=== PATIENT | female | born 1985 | race Caucasian/White ===

== ENCOUNTER 2016-09-11 12:19 | Emergency (ER) | payer OTHER ==
[~2016-09-11] VITALS: Ht 160 cm; Wt 91.3 kg
[2016-09-11 12:22] VITALS: Ht 160 cm; Wt 91.3 kg
[2016-09-11] MEDS ORDERED: PENI500T2 PO (13:43)
[2016-09-11 13:52] VITALS: BP 119/78; PULSE 78; TEMP 36.7; O2SAT 98
--- NOTE | 2016-09-12 16:28 | EMERGENCY ROOM VISIT NOTE ---
ED Visit Note First contact with patient: 13:22 CHIEF COMPLAINT: Toothache. HISTORY OF PRESENT ILLNESS: Ms. Vazquez is a 30-year-old white female who ambulates into the complaining of left mandibular dental pain. She reports approximately one month ago she injured tooth #19. She reports she chipped a tooth and was seen by a dentist who repaired her injury. Then last evening she started developing dental pain in the same tooth. Initially was mild and gradually increased in intensity. She describes her discomfort as a deep achy sensation. She rates her discomfort 7/10. Her pain is nonradiating. Her pain worsens with palpation of the tooth and chewing. She has not identified any alleviating factors related to the pain. She has not taken any medication for pain prior to arrival at the hospital. Associated with her pain she reports she feels like her face is swollen over the lateral aspect of the mandible. Patient does express significant concern because of her current about possible infections. Additionally she reports she has a history of hepatitis C and was warned about taking large doses of Tylenol cause of her liver disease, she is currently 4 months and cannot take NSAIDs and additionally she has a history of narcotic abuse and is currently on Suboxone so she cannot use narcotics. She denies fevers, chills, sweats, sore throat, difficulty swallowing, voice changes, drooling. REVIEW OF SYSTEMS: As noted above in History of Present Illness. 8 body systems were reviewed with this patient and found to be negative unless noted above otherwise. PMH: Hepatitis C, narcotic abuse, unspecified thyroid disease and status post tonsillectomy. CURRENT MEDICATION: Medications Dose Route/Sig Max Daily Dose Days Date Category Colace (Docusate Sodium) 100 Mg Cap 1 Cap PO DAILY 30 09/11/16 Reported Vitamin D3 (Cholecalciferol) 2,000 Unit Cap 1 Cap PO DAILY 30 09/11/16 Reported Methadone Hcl Unknown Strength Con 109 Mg PO DAILY 05/10/16 Reported Zoloft (Sertraline HCl) 100 Mg Tab 150 Mg PO DAILY 05/10/16 Reported Folic Acid 1 Mg Tab 4 Mg PO DAILY 05/10/16 Reported ALLERGIES TO MEDICATION: Butorphanol, sulfa.. SOCIAL HISTORY: Patient is not employed; she lives with her parents and feels safe in her home environment; she admits to tobacco use and denies alcohol use. PHYSICAL EXAM: Vital Signs: Date Time Temp Pulse Resp B/P Pulse Ox O2 Delivery O2 Flow Rate FiO2 09/11/16 13:52 36.7 78 18 119/78 98 09/11/16 12:22 36.7 78 18 119/78 98 Room Air General: 30 year-old white female in mild distress due to pain, nontoxic appearing, afebrile and hemodynamically stable. Neurological: Awake, alert and oriented to person, place and time. Answering questions appropriately and following commands. Normal gait. Good hand eye coordination. No focal motor or sensory deficits. Skin: Warm, dry and pink. HEENT: Atraumatic and normocephalic. Mild facial swelling is located over the inferior border along the angle of the mandible on the left. This area is not erythematous or warm to the touch but is mildly tender. No malocclusion. No intraoral trauma. Airway patent. There is no obvious signs of dental decay. No abscesses, erythema or edema identified. No cervical or submandibular lymphadenopathy. ED COURSE: Patient is assessed as noted above. Patient is educated about her findings and instructed on her treatment plan; she verbalizes understanding and agreement with this plan. CLINIC IMPRESSION: Dental pain. Possible early abscess. DISPOSITION: Patient discharged home in stable condition; prior to departure she was reassessed and subjectively reported she was feeling the same. PLAN: Patient was prescribed 500 mg of Pen-Vee K 4 times a day for 10 days. Patient was encouraged to use 650 mg of acetaminophen every 8 hours for pain as well as using a liquid/mechanical soft diet and room temperature and to cover the area with dental wax. Patient was encouraged to follow-up with dentistry for definitive care and treatment. Patient was encouraged to follow-up with DATA WAREHOUSING MANAGER for additional information on pain control. Patient was encouraged return the ED for worsening/uncontrolled pain, fevers, worsening facial swelling or any new/concerning symptoms.
[2016-11-03] MEDS ORDERED: DOCU-94 PO (12:27)
[2016-11-03] MEDS ORDERED: CHOL2000 PO (12:27)
[2016-11-26] MEDS ORDERED: OXYC-57 PO (10:24)
[2016-11-26] MEDS ORDERED: MTR600X PO (10:24)
== END 2016-09-11 13:52 | disposition home or self-care (01) ==
LOC: C.EDB 12:21 → C.EDD 13:52
DX: K08.89 Other specified disorders of teeth and supporting structures (principal); B19.20 Unspecified viral hepatitis C without hepatic coma; E07.9 Disorder of thyroid, unspecified; Z79.899 Other long term (current) drug therapy; Z98.890 Other specified postprocedural states; Z88.2 Allergy status to sulfonamides; Z88.8 Allergy status to other drugs, medicaments and biological substances

== ENCOUNTER → 2016-09-15 | Outpatient (CLI) | payer OTHER ==
[~2016-09-15] MED LIST: CHOL2000 PO; DOCU-94 PO; FLV1 PO; LEVO25TA PO; METH10CO11 PO; MTR600X PO; OXYC-57 PO; PENI-82 PO; PENI500T2 PO; SERT-234 PO
[2016-09-15 12:16] LABS: BASO % 0.2 %; BASO ABS # 0.02 K/uL (0-0.2); COMPLETE YES; EOS % 0.9 %; HEMATOCRIT 34.5 % (37-47); IG% 0.5 %; LYMPH % 21.7 %; LYMPH ABS # 2.11 K/uL (1.2-3.4); MEAN CELL VOLUME 85.8 fL (80-100); MEAN CORPUSCULAR HEMOGLOBIN 28.6 pg (25-34); MEAN CORPUSCULAR HGB CONC 33.3 g/dl (32-36); MEAN PLATELET VOLUME 10.5 fL (7.4-10.4); NEUT % 70.7 %; PLATELET COUNT 203 K/uL (130-400); RED BLOOD COUNT 4.02 M/uL (4.2-5.4); WHITE BLOOD COUNT 9.73 K/uL (4.8-10.8)
[2016-09-15 13:18] LABS: GTGD 50 Grams
== END | disposition home or self-care (01) ==
LOC: C.LAB 10:00
PROVIDERS: ATTEND Physician Assistant
DX: O09.92 Supervision of high risk pregnancy, unspecified, second trimester (principal); Z3A.00 Weeks of gestation of pregnancy not specified

== ENCOUNTER 2016-11-03 18:15 | Emergency (ER) | payer OTHER ==
[~2016-11-03] VITALS: Ht 160 cm; Wt 95.2 kg
[~2016-11-03 18:15] MED LIST changes: -FLV1 PO; -LEVO25TA PO; -METH10CO11 PO; -MTR600X PO; -OXYC-57 PO; -PENI-82 PO; -PENI500T2 PO; -SERT-234 PO
[2016-11-03] MEDS ORDERED: SERT-234 PO (18:18)
[2016-11-03] MEDS ORDERED: FLV1 PO (18:18)
[2016-11-03 18:19] VITALS: TEMP 36.7; Ht 160 cm; Wt 95.2 kg
[2016-11-03] MEDS ORDERED: METH10CO11 PO (18:25)
[2016-11-03] MEDS ORDERED: LEVO25TA PO (18:49)
[2016-11-03] MEDS ORDERED: PENI-82 PO (19:20)
[2016-11-03 19:27] VITALS: BP 124/90; PULSE 67; O2SAT 98
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
[2016-11-26] MEDS ORDERED: OXYC-57 PO (10:24)
[2016-11-26] MEDS ORDERED: MTR600X PO (10:24)
== END 2016-11-03 19:43 | disposition home or self-care (01) ==
LOC: C.EDB 18:16 → C.EDD 19:43
DX: K04.7 Periapical abscess without sinus (principal); O99.613 Diseases of the digestive system complicating pregnancy, third trimester; E03.9 Hypothyroidism, unspecified; F41.9 Anxiety disorder, unspecified; F31.9 Bipolar disorder, unspecified; Z79.899 Other long term (current) drug therapy; Z87.898 Personal history of other specified conditions; F12.21 Cannabis dependence, in remission; F19.21 Other psychoactive substance dependence, in remission; Z82.49 Family history of ischemic heart disease and other diseases of the circulatory system; Z83.3 Family history of diabetes mellitus; Z83.6 Family history of other diseases of the respiratory system; Z3A.34 34 weeks gestation of pregnancy; F17.200 Nicotine dependence, unspecified, uncomplicated

== ENCOUNTER 2016-11-18 17:41 | Outpatient (CLI) | payer OTHER ==
[~2016-11-18 17:41] MED LIST changes: +FLV1 PO; +LEVO25TA PO; +METH10CO11 PO; +PENI-82 PO; +SERT-234 PO
[2016-11-18] MEDS ORDERED: NURSING VERBAL MED ORDER ONE (19:15)
[2016-11-18 19:17] LABS: BENZODIAZEPINE, URINE NEG (NEG); COCAINE,URINE NEG (NEG); PHENCYCLIDINE, URINE NEG (NEG)
[2016-11-18] MEDS ORDERED: LACTATED RINGER'S 1000ML 1,000 ML IV SCH (19:30)
[2016-11-21 06:41] LABS: METHADONE METABOLITE 23800 NG/ML (CUTOFF=100); METHADONE VERIFIC 7040 NG/ML (CUTOFF=100)
--- NOTE | 2016-11-23 10:57 | CODING QUERY MEDICAL NECESSITY ---
SUPPORTING DIAGNOSIS NEEDED A supporting diagnosis is required for the test/procedure performed on this patient in order for us to be reimbursed by the patient's insurance. Please provide a supporting diagnosis for the following test/procedure listed below next to the test name along with your signature. *If there is no additional diagnosis for this patient that would support the following test/procedure please document that below next to the test/procedure. Test(s)/Procedure(s) that require a supporting diagnosis: * URINE DRUG SCREEN DIAGNOSIS: * METHADONE CONFIRMATION, URINE DIAGNOSIS: Provider Signature: Date: Thank you Emmanuelle [place] [employer] Information Management Once completed, please kindly fax back to [phone] For questions please call [phone]
[2016-11-26] MEDS ORDERED: OXYC-57 PO (10:24)
[2016-11-26] MEDS ORDERED: MTR600X PO (10:24)
--- NOTE | 2016-12-14 08:37 | EDITING REQUIRED CODING QUERY ---
SUPPORTING DIAGNOSIS NEEDED A supporting diagnosis is required for the test/procedure performed on this patient in order for us to be reimbursed by the patient's insurance. Please provide a supporting diagnosis for the following test/procedure listed below next to the test name along with your signature. *If there is no additional diagnosis for this patient that would support the following test/procedure please document that below next to the test/procedure. Test(s)/Procedure(s) that require a supporting diagnosis: * URINE DRUG SCREEN DIAGNOSIS: Hx drug use currently * METHADONE CONFIRMATION, URINE DIAGNOSIS: Hx drug use currently pregnany Provider Signature: Date: Thank you Emmanuelle Orellana Health Information Management Once completed, please kindly fax back to [phone] For questions please call [phone]
== END 2016-11-18 20:57 | disposition home or self-care (01) ==
LOC: C.OPB 17:41 → C.LD 17:42 → C.OPB 20:57
PROVIDERS: ATTEND Obstetrics & Gynecology
DX: O62.9 Abnormality of forces of labor, unspecified (principal); Z3A.36 36 weeks gestation of pregnancy; F19.21 Other psychoactive substance dependence, in remission

== ENCOUNTER 2016-11-22 23:32 | Inpatient (IN) | payer OTHER ==
[~2016-11-22] VITALS: Ht 162.6 cm; Wt 96.2 kg
[2016-11-23] VITALS (19 sets, daily range): BP systolic 125–153; BP diastolic 85–98; PULSE 58–72; TEMP 36.7–37.2; O2SAT 97–99; Ht 162.6 cm; Wt 96.2 kg
[2016-11-23] MEDS ORDERED: LACTATED RINGER'S 1000ML 1,000 ML IV SCH ×3 (00:12→04:04)
[2016-11-23] MEDS ORDERED: LACTATED RINGER'S 1000ML 1,000 ML IV PRN (00:12)
[2016-11-23 01:06] LABS: HEMATOCRIT 35.8 % (37-47); MEAN CORPUSCULAR HEMOGLOBIN 27.7 pg (25-34); MEAN PLATELET VOLUME 10.9 fL (7.4-10.4); PLATELET COUNT 213 K/uL (130-400); RED BLOOD COUNT 4.26 M/uL (4.2-5.4)
[2016-11-23 01:13] LABS: BENZODIAZEPINE, URINE NEG (NEG); COCAINE,URINE NEG (NEG); PHENCYCLIDINE, URINE NEG (NEG)
[2016-11-23 01:22] LABS: INR 0.8 (0.9-1.1)
[2016-11-23 01:23] LABS: CALCIUM 8.5 mg/dl (8.5-10.1); CREATININE 0.62 mg/dl (0.60-1.20)
[2016-11-23 01:30] LABS: ALB/GLOB RATIO 0.7 (0.9-2)
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
[2016-11-23] MEDS ORDERED: CITRIC ACID/SODIUM CITRATE 15 ML UDC PO ONE (02:30)
--- NOTE | 2016-11-23 02:34 | OB/GYN Progress Note ---
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 Patient is reevaluated She feels constant pain in lower abdomen She soaked about a half of large pad She stood up to urinate, dripping blood on the flood and toilet, about 50 cc, scared and crying VE: 3/ 60%/ -3, posterior, active bleeding+ FR: 120's categ I [place]: ctxs q2-3 min CBC, Coags WNL Urine + methadone AP: 31 yo at 37 wks with clinical abruption, active VB, remote from delivery VSS Afebrile, FHR reassuring Discussed the findings and options of either Pitocin/ AROM and trial of vaginal delivery and Csection if condition deteriorates Or delivery sooner with C section. She is scared and does not want to wait with this bleeding and put the baby at risk She desires C Section now. Understands it is a major surgery with risk of bleeding, infection, injury to surrounding organs, bladder, bowels, longer recovery, scarring, adhesion and the future risks of repeat C sections She understands and signed the consent All questions were answered
[2016-11-23] MEDS ORDERED: CEFAZOLIN IV 2,000 MG in DEXTROSE 5% 50ML 50 ML IV ONE (02:45)
[2016-11-23] MEDS ORDERED: MoRPHine SULFATE PF 1 MG/ML 10 ML AMP/VIAL ONE (02:51)
[2016-11-23] MEDS ORDERED: OXYTOCIN INJ 10 UNITS/ML VIAL ONE ×4 (03:23→04:20)
[2016-11-23] MEDS ORDERED: ONDANSETRON INJ 2 MG/ML 2 ML VIAL ONE (03:23)
[2016-11-23] MEDS ORDERED: KETOROLAC TROMETHAMINE 30 MG/ML VIAL ONE (03:23)
[2016-11-23] MEDS ORDERED: SODIUM CHLORIDE 0.9% 1000ML 1,000 ML IV PRN (03:40)
[2016-11-23] MEDS ORDERED: NALOXONE HCL INJ 0.08 MG in SYRINGE 1.8 ML IV PRN (03:40)
[2016-11-23] MEDS ORDERED: NALOXONE HCL INJ 1 MG in SODIUM CHLORIDE 0.9% 1000ML 1,000 ML IV PRN (03:40)
[2016-11-23] MEDS ORDERED: LACTATED RINGER'S 1000ML 500 ML IV PRN (03:40)
[2016-11-23] MEDS ORDERED: ONDANSETRON INJ 2 MG/ML 2 ML VIAL IV PRN ×2 (03:45→19:00)
[2016-11-23] MEDS ORDERED: NO NARCOTICS OR SEDATIVES SCH (03:45)
[2016-11-23] MEDS ORDERED: NALOXONE HCL 0.4 MG/1 ML VIAL/CARP IV PRN (03:45)
[2016-11-23] MEDS ORDERED: DiphenhydrAMINE HCL 50 MG/ML VIAL IV PRN ×2 (03:45→19:00)
[2016-11-23] MEDS ORDERED: NALBUPHINE HCL INJ 10 MG/ML AMP IV PRN (03:45)
[2016-11-23] MEDS ORDERED: EpHEDrine SULFATE INJ 50 MG/ML AMP IV PRN (03:45)
[2016-11-23] MEDS ORDERED: MoRPHine SULFATE PF 1 MG/ML 10 ML AMP/VIAL EPI PRN (03:45)
[2016-11-23] MEDS ORDERED: MoRPHine SULFATE 2 MG/ML CARP IV PRN (03:45)
[2016-11-23] MEDS ORDERED: BENZOCAINE 20% AER SPR 82.5 GM CAN EXT PRN (04:15)
[2016-11-23] MEDS ORDERED: MAGNESIUM HYDROXIDE SUSP 30 ML UDC PO PRN (04:15)
[2016-11-23] MEDS ORDERED: SUPERCREAM 0.870 % 15GM JAR EXT PRN (04:15)
[2016-11-23] MEDS ORDERED: LANOLIN OINT EXT PRN ×2 (04:15)
[2016-11-23] MEDS ORDERED: HYDROCORTISONE ACETATE 25 MG SUPP PR PRN (04:15)
[2016-11-23] MEDS ORDERED: SENNA 8.6 MG TAB PO PRN (04:15)
[2016-11-23] MEDS ORDERED: MEASLES, MUMPS & RUBELLA VIRUS VIAL SQ. ONE (04:15)
[2016-11-23] MEDS ORDERED: DIPHTHERIA/TETANUS/PERTUSSIS 0.5 ML SYR/VIAL IM. ONE (04:15)
--- NOTE | 2016-11-23 04:18 | [facility] Operative Report ---
Operative Report Operative Date Nov 23, 2016. Pre-Operative Diagnosis 31 yo at 37 weeks with active vaginal bleeding, Placental abruption remote from delivery Post-Operative Diagnosis Same Procedure(s) Performed Primary Low Transverse Section Surgeon Dr. De Los Santos Environment Coordinator Surgeon(s) GURMEET Jackson Estimated Blood Loss 500ml Findings Blood cloths upon entry to uterus Normal uterus, fallopian tubes and ovaries Baby viable male delivered at 0314 am, Apgars 6/9, weight 2210 gr. Fluids 1500 ml Specimens A: Placenta-exam B: Arterial and venous cord gases Drains Hanson 150 ml Anesthesia Spinal, Dr. Alan Complication(s) None Disposition L&D Indications Vaginal bleeding, placental abruption, remote from delivery Description of Procedure The patient was taken to the operating room, where spinal anesthesia was administered. The patient was immediately placed in the dorsal supine position with a left lateral tilt and was prepped and draped in a sterile manner appropriate for the procedure. Once anesthesia was found to be adequate, a Pfannenstiel skin incision was made and was carried down through to a layer of the rectus fascia with the Bovie. The fascia was nicked in the midline and extended bilaterally with curved Hicks scissors. The superior aspect of the fascial incision was grasped with Jaiden clamps, elevated, and the rectus muscles were dissected off with the use of the electrocautery and curved Hicks scissors. Likewise, the inferior aspect of the fascial incision was grasped with Jaiden clamps, elevated, and the rectus muscles were dissected off with the use of the curved Hicks scissors. The rectus muscles were in midline. Peritoneum was entered bluntly and extended cephalocaudally with gentle traction. Bladder blade was then placed within the abdomen. The vesicouterine peritoneum was identified and a bladder flap was created with Metzenbaum scissors and digital traction. The bladder flap was reincorporated beneath the Karma blade. A transverse incision was then made on the uterus and extended bilaterally with digital traction. There noted to be a large blood cloth about 100 ml rigght under the uterine wall at the entry site. The membranes were then ruptured noting clear amniotic fluid. The baby's head was delivered through the incision along with the rest of the body was delivered. The baby was bulb suctioned. Cord was clamped x2 and cut. The baby was immediately handed to an awaiting inventory checker, Dr. Correia for further evaluation and management. Please see their notes for further baby assessment. Cord blood was then obtained for gases and intact placenta with 3-vessel cord was delivered manually through the incision. The uterus was then exteriorized and wrapped in a moist laparotomy sponge. The uterus was cleared of any trailing membranes and debris with the laparotomy sponge. The uterine incision was then grasped with ring forceps at 4 quadrants and was closed with 0 Vicryl suture in continuous locking fashion. A second layer of 0 Vicryl suture was used in imbricating fashion to ensure hemostasis. Any residual bleeding was suture ligated with 0 Vicryl suture in a [id number] interrupted fashion. Excellent hemostasis was noted at the incision. The uterus was then placed back within its normal anatomic position within the abdomen. Inspection of the incision was noted to be hemostatic. Bilateral tubal ligations were also hemostatic. The abdomen was then irrigated with warm saline solution. All instruments were then removed from the abdomen. The peritoneum was grasped with Sheron clamps and was closed with 3-0 Vicryl suture in continuous running fashion. Rectus muscles were reapproximated with 3-0 Vicryl suture in a [id number] interrupted fashion. Fascia was then closed with 0 Vicryl suture in continuous running fashion. The subcuticular fat tissue was reapproximated with 3-0 Vicryl in running fashion. The skin was then closed with 4-0 Monocryl in subcuticular fashion. Excellent hemostasis was noted through all tissue layers. No complications happened. The patient tolerated the procedure well and was sent to recovery with stable vital signs. She was given 2 grams of Cefazolin before surgery. I attest to the content of the Intraoperative Record and any orders documented therein. Any exceptions are noted below.
--- NOTE | 2016-11-23 04:19 | Anesthesiology Progress Note ---
Anesthesia Post Op Note Date & Time Nov 23, 2016 at 04:19 Notes Mental Status: alert / awake / arousable, participated in evaluation Pt Amnestic to Procedure: Yes Nausea / Vomiting: adequately controlled Pain: adequately controlled Airway Patency, RR, SpO2: stable & adequate BP & HR: stable & adequate Hydration State: stable & adequate Anesthetic Complications: no major complications apparent
[2016-11-23] MEDS: OXYTOCIN INJ 20 UNITS in LACTATED RINGER'S 1000ML 1,000 ML IV SCH ×2 (04:59→12:36)
[2016-11-23] MEDS: KETOROLAC TROMETHAMINE 30 MG/ML VIAL IV. PRN ×3 (05:56→18:31)
[2016-11-23] MEDS ORDERED: ACETAMINOPHEN IV 100 ML IV PRN (07:45)
[2016-11-23] MEDS: PRENATAL VITAMIN TAB PO SCH (08:00)
[2016-11-23] MEDS ORDERED: NURSING VERBAL MED ORDER ONE (08:00)
[2016-11-23] MEDS: FERROUS SULFATE 325 MG TAB PO SCH (08:00)
[2016-11-23] MEDS ORDERED: METHADONE ORAL SOLN 5 MG/2.5 ML UDP PO SCH (09:00)
[2016-11-23] MEDS: METHADONE ORAL SOLN 2 MG/1ML PO SCH (09:13)
[2016-11-23] MEDS: SIMETHICONE 80 MG CHEW PO SCH ×4 (09:14→19:31)
[2016-11-23] MEDS: DOCUSATE SODIUM 100 MG CAP PO SCH ×2 (09:14→19:31)
[2016-11-23] MEDS ORDERED: DC INTRASPINAL MORPHINE ONE (19:00)
[2016-11-23] MEDS ORDERED: PROMETHAZINE HCL INJ 25 MG in SODIUM CHLORIDE 0.9% 50ML 50 ML IV PRN (19:00)
[2016-11-23] MEDS ORDERED: MEPERIDINE HCL 50 MG/ML CARP IV PRN (19:00)
[2016-11-23] MEDS ORDERED: KETOROLAC TROMETHAMINE 30 MG/ML VIAL IV. PRN (19:00)
[2016-11-23] MEDS: SERTRALINE HCL 100 MG TAB PO SCH (20:58)
[2016-11-23] MEDS: OXYCODONE/ACETAMINOPHEN 5-325 TAB PO PRN (23:42)
[2016-11-23] MEDS: IBUPROFEN 600 MG TAB PO PRN (23:42)
[2016-11-24 03:00] VITALS: BP 126/80; PULSE 60; TEMP 36.8; O2SAT 94
[2016-11-24] MEDS: IBUPROFEN 600 MG TAB PO PRN ×4 (05:22→20:14)
[2016-11-24] MEDS: OXYCODONE/ACETAMINOPHEN 5-325 TAB PO PRN ×4 (05:24→20:14)
[2016-11-24 07:36] VITALS: BP 141/92; PULSE 60; TEMP 36.6; O2SAT 97
[2016-11-24] MEDS: SIMETHICONE 80 MG CHEW PO SCH ×4 (08:21→20:14)
[2016-11-24] MEDS: DOCUSATE SODIUM 100 MG CAP PO SCH ×2 (08:22→20:13)
[2016-11-24] MEDS: PRENATAL VITAMIN TAB PO SCH (08:22)
[2016-11-24] MEDS: FERROUS SULFATE 325 MG TAB PO SCH (08:22)
[2016-11-24] MEDS: METHADONE ORAL SOLN 2 MG/1ML PO SCH (08:25)
[2016-11-24 16:45] VITALS: BP 124/79; PULSE 62; TEMP 36.8; O2SAT 97
--- NOTE | 2016-11-24 19:33 | OB/GYN Progress Note ---
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 Subjective conversation w/ patient, physical exam Ambulation: ambulating normally Voiding: no voiding problems Passing Gas: Yes Diet Tolerance: Regular Diet Lochia: Moderate Pain: 3/10 Notes: Doing better this morning. Pain better controlled. Incision dressing removed and is c/d/i. Tolerating regular diet, +flatus, -BM. Ambulating with assistance. Objective Vital Signs Date Time Temp Pulse Resp B/P (MAP) Pulse Ox O2 Delivery O2 Flow Rate FiO2 11/24/16 16:45 36.8 62 18 124/79 (94) 97 Room Air 11/24/16 16:45 97 Room Air 11/24/16 07:36 36.6 60 20 141/92 (108) 97 Room Air 11/24/16 03:00 36.8 60 18 126/80 (95) 94 Room Air 11/23/16 23:30 Room Air 11/23/16 23:30 37.0 72 18 143/85 (104) 97 Room Air Physical Exam General Appearance: WELL-APPEARING Respiratory/Chest: chest non-tender, lungs clear Cardiovascular: regular rate, rhythm Abdomen: normal bowel sounds, soft Fundus: Firm Incision Description: Clean, Dry & Intact Extremities: normal range of motion, non-tender, no calf tenderness Laboratory Results Last 24 Hours Test 11/24/16 19:23 Assessment and Plan Post-Op Day Number: 1 Continue Routine Care: -Continue routine postop care -Pt refused CBC this AM. Will draw tomorrow AM if patient agrees.
[2016-11-24 20:30] VITALS: BP 128/85; PULSE 74; TEMP 36.9; O2SAT 97
[2016-11-24] MEDS: SERTRALINE HCL 100 MG TAB PO SCH (21:34)
[2016-11-24] MEDS ORDERED: BISACODYL 5 MG TABEC PO ONE (22:00)
[2016-11-24 22:50] VITALS: BP 132/82; PULSE 65; TEMP 36.8; O2SAT 97
[2016-11-25] MEDS: IBUPROFEN 600 MG TAB PO PRN ×5 (03:47→21:11)
[2016-11-25] MEDS: OXYCODONE/ACETAMINOPHEN 5-325 TAB PO PRN ×5 (03:48→21:10)
[2016-11-25] MEDS ORDERED: BISACODYL 10 MG SUPP PR PRN (04:15)
[2016-11-25] MEDS: DOCUSATE SODIUM 100 MG CAP PO SCH ×2 (07:49→21:13)
[2016-11-25] MEDS: PRENATAL VITAMIN TAB PO SCH (07:49)
[2016-11-25] MEDS: SIMETHICONE 80 MG CHEW PO SCH ×4 (07:49→21:13)
[2016-11-25] MEDS: FERROUS SULFATE 325 MG TAB PO SCH (07:49)
[2016-11-25] MEDS: METHADONE ORAL SOLN 2 MG/1ML PO SCH (07:50)
--- NOTE | 2016-11-25 07:55 | Surgery Progress Note ---
Surgery Progress Note Date of Service Nov 25, 2016. Subjective Post OP Day: 2 + feeling well, + complaints, + diet still not ambulating well pain Objective Vital Signs: Date Time Temp Pulse Resp B/P (MAP) Pulse Ox O2 Delivery O2 Flow Rate FiO2 11/24/16 22:50 Room Air 11/24/16 22:50 36.8 65 20 132/82 (99) 97 Room Air 11/24/16 20:30 36.9 74 20 128/85 (99) 97 Room Air 11/24/16 16:45 36.8 62 18 124/79 (94) 97 Room Air 11/24/16 16:45 97 Room Air Abdomen: non distended, soft, + tenderness Incision(s): clean, dry, intact Extremities: non-tender, normal inspection, no pedal edema, no calf tenderness Laboratory Results: Results Past 24 Hours Test 11/25/16 04:44 Range/Units Assessment & Plan POD#2 tent d/c in AM regular diet
[2016-11-25 08:00] VITALS: BP 144/85; PULSE 61; TEMP 36.6; O2SAT 96
[2016-11-25 09:20] VITALS: BP 132/84
[2016-11-25 15:11] LABS: METHADONE METABOLITE 14300 NG/ML (CUTOFF=100); METHADONE VERIFIC 2930 NG/ML (CUTOFF=100)
[2016-11-25 16:00] VITALS: BP 128/85; PULSE 76; TEMP 36.9; O2SAT 96; O2SAT 97
[2016-11-25] MEDS: SERTRALINE HCL 100 MG TAB PO SCH (21:11)
[2016-11-25 23:00] VITALS: BP 135/81; PULSE 64; TEMP 36.9; O2SAT 98
[2016-11-26] MEDS: OXYCODONE/ACETAMINOPHEN 5-325 TAB PO PRN ×4 (02:41→21:40)
[2016-11-26] MEDS: IBUPROFEN 600 MG TAB PO PRN ×4 (02:41→21:39)
[2016-11-26 06:47] LABS: HEMATOCRIT 32.1 % (37-47); MEAN CELL VOLUME 86.1 fL (80-100); MEAN CORPUSCULAR HEMOGLOBIN 27.1 pg (25-34); MEAN CORPUSCULAR HGB CONC 31.5 g/dl (32-36); MEAN PLATELET VOLUME 10.7 fL (7.4-10.4); PLATELET COUNT 183 K/uL (130-400); RED BLOOD COUNT 3.73 M/uL (4.2-5.4); WHITE BLOOD COUNT 8.98 K/uL (4.8-10.8)
[2016-11-26 08:20] VITALS: BP 138/87; PULSE 74; TEMP 37; O2SAT 97
[2016-11-26] MEDS: SIMETHICONE 80 MG CHEW PO SCH ×4 (08:20→21:35)
[2016-11-26] MEDS: PRENATAL VITAMIN TAB PO SCH (08:25)
[2016-11-26] MEDS: METHADONE ORAL SOLN 2 MG/1ML PO SCH (08:25)
[2016-11-26] MEDS: FERROUS SULFATE 325 MG TAB PO SCH (08:25)
[2016-11-26] MEDS: DOCUSATE SODIUM 100 MG CAP PO SCH ×2 (08:25→21:38)
--- NOTE | 2016-11-26 09:43 | OB/GYN Progress Note ---
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 Attempt to see her She is walking around the hallway She states she is doing well, no complaints She likes to bee seen "sometime later today"
--- NOTE | 2016-11-26 10:23 | Discharge Instructions ---
Discharge Instructions Date of Service Nov 26, 2016. Admission Reason for Admission: Vaginal Bleeding During , Antepartum Discharge Discharge Diagnosis / Problem: Primary Csection for placental abruption Discharge Goals Goal(s): Routine recovery after Medications Continue Dispensed Medications: lansinoh Activity Recommendations Activity Limitations: as noted below Lifting Limitations: no more than 10 pounds Exercise/Sports Limitations: until after follow-up appointment May Resume Sexual Activity: after follow-up appointment Shower/Bathe: keep incision dry Driving or Machine Use: ACTIVITY RECOMMENDATIONS: * Gradual return to full activity over the next 2-3 weeks. * No lifting - nothing heavier than baby over the next 2-3 weeks. * Do not engage in vigorous exercise, sexual activity or sports until cleared by your physician. * Do not drive or operate any motorized equipment until cleared by your physician. * You may shower/bathe daily. BREAST CARE: If you are not breast feeding: * Wear a supportive bra 24 hours a day for one to two weeks. * Avoid stimulating your breasts and nipples as much as possible during the first few weeks after delivery. * When taking a shower, have the warm water hit your back, not breasts. * When your breasts feel full, apply ice packs. Usually three to four times a day helps ease the discomfort. * Take a mild pain medication (Tylenol/Motrin) when you are uncomfortable. If breast feeding: * Use breast milk to lubricate nipples. Lansinoh cream may be used for sore nipples. You do not need to remove cream prior to breast feeding. If using a different brand of cream, check the label for directions regarding removal of cream prior to nursing. * Wear a supportive bra. * If having problems with breasts or breast feeding, call a child development consultant or your health care provider. OVER THE COUNTER MEDICATION: * For discomfort or pain, you may use Acetaminophen (Tylenol), Ibuprofen (Advil ), or Naproxen (Aleve) following the package directions. * For constipation you may use Colace following the package directions. SPECIAL CARE INSTRUCTIONS: When you are discharged from the hospital, it is important for you to follow the instructions listed below: * During the first week at home, you should be able to care for yourself and your baby. In addition, the usual light household activities are encouraged. * Limit your activities to the way you feel. Do not try to clean the house or move furniture. Be sensible. * If you actively engage in sports and have done so up until the time of your delivery, you may resume these activities as soon as you feel able. This may take up to one month or even longer. Use good judgment. * Continue to take your vitamins for at least six weeks after the of your baby. * Your diet need not be limited unless you were on a special diet before your delivery. Breast-feeding mothers need around 2500 calories per day and at least 64-80 ounces of fluid per day (8 to 10 glasses). * You should eat foods from the four major food groups. Crash diets or fad diets are to be avoided. Eating lean meats, fresh fruits and vegetables, low-fat dairy products, high fiber foods and a regular exercise program, will help you get back to your pre- weight without putting your health at risk. * Constipation is sometimes a problem after delivery. Take a mild laxative as needed. If breast feeding, Milk of Magnesia is acceptable to use. You may use a suppository or Fleets enema if no episiotomy. * A daily shower or tub bath is suggested. Be sure to thoroughly and gently dry the perineum. * A bloody vaginal discharge will usually continue until around four weeks post . A small amount of bleeding may continue for as long as six weeks. Vaginal discharge changes from the bright red bleeding after delivery to pink then brownish and finally yellowish-pink before becoming white and disappearing. * Bleeding may increase with activity. Your first period may come in 4-8 weeks. If you are breast feeding, your period may be delayed even longer. * [place] (sex) can begin whenever both you and your partner feel comfortable and do not have any form of genital infection. It is recommended that you wait at least six weeks for internal and external healing to occur. If you have questions, please talk to your health care practitioner. A condom should be used to prevent infection and . * Foreplay, gentle intercourse and lubrication is very important the first several times to prevent pain. A water-based lubricant such as K-Y jelly or Astroglide may be used. * Tampons and/or Douching should be avoided until after six weeks check-up. * If you have RH negative blood and your baby is RH positive, you will receive RHOGAM by injection prior to discharge. The nurse will give you a card to keep with you that has the date and place that you received RHOGAM after delivery. * During your care, you had a Rubella screen done to check for the presence of rubella antibodies in your blood. If your test was negative, you will receive a Rubella vaccine prior to discharge. This vaccine may cause a fever, soreness at the injection site and flu-like symptoms. If these symptoms persist, notify your health care practitioner. is not advised for three months after a Rubella vaccine. * Verbalizes understanding of car seat law as reviewed with patient nursing. * Car Seat hand-out given and reviewed with patient by nursing. * Shaken baby information reviewed with patient by nursing. Call you doctor if: * Heavy bleeding (saturating several pads an hour) or passing clots the size of your fist. * A fever >101 degrees F (38.3 degrees C) on two occasions four hours apart and /or chills. * Unusual pain in the pelvic or vaginal areas. Pain should improve each day . * Call the doctor for any increased redness, drainage or swelling around the incision and any pain unrelieved by prescribed pain medication. * Any signs or symptoms of phlebitis (possible blood clots forming in the veins ): leg pain, warm, red or swollen area on leg. * "Baby Blues" lasting longer than two weeks. If you have any questions or concerns, call your health care practitioner at . FOLLOW-UP VISIT: * Incision check (staple removal) in 1 week. Please call doctor's office at to set up appointment. * Please call the office at to schedule a 6 week examination. It is important you keep this appointment. * It is important for you to make arrangements for either yearly or twice yearly check-ups thereafter. . Current Hospital Diet Patient's current hospital diet: Regular OB Diet Discharge Diet Recommended Diet: Regular Diet Procedures Procedures Performed: Primary caesarean section Live male child at 0314 Pending Studies Studies pending at discharge: no Medical Emergencies . Who to Call and When: Medical Emergencies: If at any time you feel your situation is an emergency, please call 911 immediately. . Non-Emergent Contact Non-Emergency issues call your: Surgeon Call Non-Emergent contact if: temperature is above 100.5, your pain is not controlled, your pain is worsening . . "Provider Documentation" section prepared by Eliza De Los Santos. . VTE Core Measure Inpt VTE Proph given/why not?: Treatment not indicated
[2016-11-26] MEDS ORDERED: MTR600X PO (10:24)
[2016-11-26] MEDS ORDERED: OXYC-57 PO (10:24)
--- NOTE | 2016-11-26 10:25 | OB/GYN Progress Note ---
[facility] GEOLOGIST Progress Note Date of Service: Nov 26, 2016. Patient is seen and examined. She feels well, no complaints. Pain is under control with oral meds. Ambulating without dizziness Voiding without difficulty Tolerating regular diet with out N&V Flatus + BM + Bleeding is minimal No fever/ chills/ CP/ SOB/ N&V/ Leg pain Breast feeding, baby is staying Date Time Temp Pulse Resp B/P (MAP) Pulse Ox O2 Delivery O2 Flow Rate FiO2 11/26/16 08:20 37.0 74 16 138/87 (104) 97 Room Air 11/25/16 23:00 36.9 64 20 135/81 (99) 98 Room Air 11/25/16 23:00 98 Room Air 11/25/16 16:00 96 Room Air 11/25/16 16:00 36.9 76 18 128/85 (99) 97 Room Air PE: General: Alert, orientedx3, NAD CVS: S1S2 RRR Lungs; CTAB Abd: soft, NT, fundus firm, below Umbilicus Incision: Clean, dry, intact Perineum intact, Lochia rubra minimal Ext; NT, no edema AP: 31 yo s/p C Section, pod# 3 VSS Afebrile doing well Continue routine postop care Encourage ambulation, PO intake All questions were answered D/C home in am
[2016-11-26 16:00] VITALS: BP 136/86; PULSE 72; TEMP 36
[2016-11-26] MEDS: SERTRALINE HCL 100 MG TAB PO SCH (21:37)
[2016-11-27 00:45] VITALS: BP 126/82; PULSE 69; TEMP 36.6; O2SAT 97
[2016-11-27] MEDS: OXYCODONE/ACETAMINOPHEN 5-325 TAB PO PRN ×3 (01:52→20:06)
[2016-11-27] MEDS: IBUPROFEN 600 MG TAB PO PRN ×4 (01:52→20:06)
[2016-11-27 07:15] VITALS: BP 130/85; PULSE 95; TEMP 36.7; O2SAT 96
[2016-11-27] MEDS: METHADONE ORAL SOLN 2 MG/1ML PO SCH (08:12)
[2016-11-27] MEDS: DOCUSATE SODIUM 100 MG CAP PO SCH ×2 (08:12→20:06)
[2016-11-27] MEDS: FERROUS SULFATE 325 MG TAB PO SCH (08:12)
[2016-11-27] MEDS: SIMETHICONE 80 MG CHEW PO SCH ×2 (08:12→20:07)
[2016-11-27] MEDS: PRENATAL VITAMIN TAB PO SCH (08:12)
--- NOTE | 2016-11-27 10:49 | OB/GYN Progress Note ---
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 Patient is seen and examined. She feels well, no complaints. Pain is under control with oral meds. Ambulating without dizziness Voiding without difficulty Tolerating regular diet with out N&V Flatus + BM + Bleeding is minimal No fever/ chills/ CP/ SOB/ N&V/ Leg pain Breast feeding without problems Date Time Temp Pulse Resp B/P (MAP) Pulse Ox O2 Delivery O2 Flow Rate FiO2 11/27/16 07:15 36.7 95 18 130/85 (100) 96 Room Air 11/27/16 00:45 97 Room Air 11/27/16 00:45 36.6 69 18 126/82 (97) 97 Room Air 11/26/16 16:00 36.0 72 18 136/86 (103) PE: General: Alert, orientedx3, NAD CVS: S1S2 RRR Lungs; CTAB Abd: soft, NT, fundus firm, below Umbilicus Incision: Clean, dry, intact Perineum intact, Lochia rubra minimal Ext; NT, no edema AP:31 yo s/p C Section, pod# 4 VSS Afebrile doing well Instructions were given when to call All questions were answered D/C nesting, f/u in office
[2016-11-27 15:05] VITALS: BP_DIAS 85; PULSE 95; TEMP 36.7
[2016-11-27] MEDS: SERTRALINE HCL 100 MG TAB PO SCH (20:36)
--- NOTE | 2016-12-05 19:43 | Discharge Summary ---
Discharge Summary Date of Service Dec 05, 2016. Discharge Summary Admission Date: Nov 23, 2016 at 00:14 Discharge Date: Nov 27, 2016 Principal Diagnosis: Placental abruption Procedures: Primary LTCS Admission Information HPI (per Admitting provider): Patient is a 31 yo at 37 wks who started to have VB about an hour ago while sitting in the chair. She soaked a pantyliner and passed cloths in the toilet She came to ER directly. She soaked another pantlyliner on the way and passes small cloths in the toilet. 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 Hospital Course Postop period: she recovered well , VSS Afebrile, PE unremarkable, ambulating, tolerating regular idet, bowel, bladder functions WNL, Incision clean/ dry / intact She was d/c'd home/ nesting on postop day 4 Baby stayed in hospital Total time spent on discharge = This includes examination of the patient, discharge planning, medication reconciliation, and communication with other providers. Discharge Instructions ACTIVITY RECOMMENDATIONS: * Gradual return to full activity over the next 2-3 weeks. * No lifting - nothing heavier than baby over the next 2-3 weeks. * Do not engage in vigorous exercise, sexual activity or sports until cleared by your physician. * Do not drive or operate any motorized equipment until cleared by your physician. * You may shower/bathe daily. BREAST CARE: If you are not breast feeding: * Wear a supportive bra 24 hours a day for one to two weeks. * Avoid stimulating your breasts and nipples as much as possible during the first few weeks after delivery. * When taking a shower, have the warm water hit your back, not breasts. * When your breasts feel full, apply ice packs. Usually three to four times a day helps ease the discomfort. * Take a mild pain medication (Tylenol/Motrin) when you are uncomfortable. If breast feeding: * Use breast milk to lubricate nipples. Lansinoh cream may be used for sore nipples. You do not need to remove cream prior to breast feeding. If using a different brand of cream, check the label for directions regarding removal of cream prior to nursing. * Wear a supportive bra. * If having problems with breasts or breast feeding, call a rn lactation consultant or your health care provider. OVER THE COUNTER MEDICATION: * For discomfort or pain, you may use Acetaminophen (Tylenol), Ibuprofen (Advil ), or Naproxen (Aleve) following the package directions. * For constipation you may use Colace following the package directions. SPECIAL CARE INSTRUCTIONS: When you are discharged from the hospital, it is important for you to follow the instructions listed below: * During the first week at home, you should be able to care for yourself and your baby. In addition, the usual light household activities are encouraged. * Limit your activities to the way you feel. Do not try to clean the house or move furniture. Be sensible. * If you actively engage in sports and have done so up until the time of your delivery, you may resume these activities as soon as you feel able. This may take up to one month or even longer. Use good judgment. * Continue to take your vitamins for at least six weeks after the of your baby. * Your diet need not be limited unless you were on a special diet before your delivery. Breast-feeding mothers need around 2500 calories per day and at least 64-80 ounces of fluid per day (8 to 10 glasses). * You should eat foods from the four major food groups. Crash diets or fad diets are to be avoided. Eating lean meats, fresh fruits and vegetables, low-fat dairy products, high fiber foods and a regular exercise program, will help you get back to your pre- weight without putting your health at risk. * Constipation is sometimes a problem after delivery. Take a mild laxative as needed. If breast feeding, Milk of Magnesia is acceptable to use. You may use a suppository or Fleets enema if no episiotomy. * A daily shower or tub bath is suggested. Be sure to thoroughly and gently dry the perineum. * A bloody vaginal discharge will usually continue until around four weeks post . A small amount of bleeding may continue for as long as six weeks. Vaginal discharge changes from the bright red bleeding after delivery to pink then brownish and finally yellowish-pink before becoming white and disappearing. * Bleeding may increase with activity. Your first period may come in 4-8 weeks. If you are breast feeding, your period may be delayed even longer. * [place] (sex) can begin whenever both you and your partner feel comfortable and do not have any form of genital infection. It is recommended that you wait at least six weeks for internal and external healing to occur. If you have questions, please talk to your health care practitioner. A condom should be used to prevent infection and . * Foreplay, gentle intercourse and lubrication is very important the first several times to prevent pain. A water-based lubricant such as K-Y jelly or Astroglide may be used. * Tampons and/or Douching should be avoided until after six weeks check-up. * If you have RH negative blood and your baby is RH positive, you will receive RHOGAM by injection prior to discharge. The nurse will give you a card to keep with you that has the date and place that you received RHOGAM after delivery. * During your care, you had a Rubella screen done to check for the presence of rubella antibodies in your blood. If your test was negative, you will receive a Rubella vaccine prior to discharge. This vaccine may cause a fever, soreness at the injection site and flu-like symptoms. If these symptoms persist, notify your health care practitioner. is not advised for three months after a Rubella vaccine. * Verbalizes understanding of car seat law as reviewed with patient nursing. * Car Seat hand-out given and reviewed with patient by nursing. * Shaken baby information reviewed with patient by nursing. Call you doctor if: * Heavy bleeding (saturating several pads an hour) or passing clots the size of your fist. * A fever >101 degrees F (38.3 degrees C) on two occasions four hours apart and /or chills. * Unusual pain in the pelvic or vaginal areas. Pain should improve each day . * Call the doctor for any increased redness, drainage or swelling around the incision and any pain unrelieved by prescribed pain medication. * Any signs or symptoms of phlebitis (possible blood clots forming in the veins ): leg pain, warm, red or swollen area on leg. * "Baby Blues" lasting longer than two weeks. If you have any questions or concerns, call your health care practitioner at . FOLLOW-UP VISIT: * Incision check (staple removal) in 1 week. Please call doctor's office at to set up appointment. * Please call the office at to schedule a 6 week examination. It is important you keep this appointment. * It is important for you to make arrangements for either yearly or twice yearly check-ups thereafter.
== END 2016-11-27 21:15 | disposition home or self-care (01) | DRG 765 ==
LOC: C.OPB 23:32 → C.LD 23:32 → C.OPB 11-23 00:23 → C.OBG 11-23 06:49
PROVIDERS: ADMIT Obstetrics & Gynecology; ATTEND Obstetrics & Gynecology
PROC: 10D00Z1 Extraction of Products of Conception, Low, Open Approach (ICD-10-PCS; principal; 2016-11-23 02:48)
DX: O45.93 Premature separation of placenta, unspecified, third trimester (principal); O99.324 Drug use complicating childbirth; F11.20 Opioid dependence, uncomplicated; O99.834 Other infection carrier state complicating childbirth; Z22.4 Carrier of infections with a predominantly sexual mode of transmission; O99.334 Smoking (tobacco) complicating childbirth; F17.200 Nicotine dependence, unspecified, uncomplicated; O99.344 Other mental disorders complicating childbirth; F32.9 Major depressive disorder, single episode, unspecified; O99.284 Endocrine, nutritional and metabolic diseases complicating childbirth; E03.9 Hypothyroidism, unspecified; Z3A.37 37 weeks gestation of pregnancy; Z37.0 Single live birth; Z79.899 Other long term (current) drug therapy

== ENCOUNTER → 2017-04-17 | Outpatient (CLI) | payer OTHER ==
[~2017-04-17] MED LIST changes: +MTR600X PO; +OXYC-57 PO; -PENI-82 PO
[2017-04-17 12:19] LABS: HEMATOCRIT 41.9 % (37-47); MEAN CELL VOLUME 82.3 fL (80-100); MEAN CORPUSCULAR HEMOGLOBIN 26.7 pg (25-34); MEAN CORPUSCULAR HGB CONC 32.5 g/dl (32-36); MEAN PLATELET VOLUME 10.3 fL (7.4-10.4); PLATELET COUNT 237 K/uL (130-400); RED BLOOD COUNT 5.09 M/uL (4.2-5.4)
== END | disposition home or self-care (01) ==
LOC: C.LAB 10:38
PROVIDERS: ATTEND Family Medicine
DX: Z98.891 History of uterine scar from previous surgery (principal); D64.9 Anemia, unspecified; E03.9 Hypothyroidism, unspecified

== ENCOUNTER 2017-09-19 09:43 | Emergency (ER) | payer OTHER ==
[~2017-09-19] VITALS: Ht 160 cm; Wt 102.4 kg
[2017-09-19 09:47] VITALS: Ht 160 cm; Wt 102.4 kg
[2017-09-19] MEDS ORDERED: AMPH20TA2 PO (10:25)
[2017-09-19] MEDS ORDERED: IBUP-1459 PO (10:29)
[2017-09-19] MEDS ORDERED: AMPH10TA2 PO (10:29)
[2017-09-19] MEDS ORDERED: BCPILLS PO (10:29)
[2017-09-19] MEDS ORDERED: OXYBPOW10 PO (10:29)
--- NOTE | 2017-09-19 11:06 | DIAGNOSTIC IMAGING REPORT ---
TWO VIEW CHEST CLINICAL HISTORY: Cough. FINDINGS: PA and lateral chest radiographs are compared to study dated 05/19/2013. The cardiomediastinal silhouette is unremarkable. The lungs and pleural spaces are clear. There is no pneumothorax. The bony thorax appears intact. IMPRESSION: No active disease in the chest. Electronically signed by: Reginald Anguiano M.D. 09/19/2017 11:04 AM Dictated Date/Time: 09/19/2017 11:04 AM
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
[2017-09-19] MEDS ORDERED: AZITTAB PO (11:21)
[2017-09-19] MEDS ORDERED: VNTHFA/IN INH (11:21)
[2017-09-19 11:41] VITALS: BP 125/79; PULSE 78; TEMP 36.8; O2SAT 95
== END 2017-09-19 11:42 | disposition home or self-care (01) ==
LOC: C.EDB 09:44
DX: J20.9 Acute bronchitis, unspecified (principal); B19.20 Unspecified viral hepatitis C without hepatic coma; F41.9 Anxiety disorder, unspecified; F31.9 Bipolar disorder, unspecified; F32.9 Major depressive disorder, single episode, unspecified; F60.3 Borderline personality disorder; F11.20 Opioid dependence, uncomplicated; E03.9 Hypothyroidism, unspecified; Z79.3 Long term (current) use of hormonal contraceptives; Z79.891 Long term (current) use of opiate analgesic; Z79.899 Other long term (current) drug therapy; Z88.8 Allergy status to other drugs, medicaments and biological substances; Z88.1 Allergy status to other antibiotic agents